=== PATIENT | male | born 1965 | race Caucasian/White ===

== ENCOUNTER 2019-01-09 22:50 | Emergency (ER) | payer OTHER ==
[~2019-01-09] VITALS: Ht 172.7 cm; Wt 69.0 kg
[~2019-01-09 22:50] MED LIST: CEPH-443 PO; HYDR-3498 PO; IBUP-1542 PO
[2019-01-09 22:58] VITALS: BP 127/62; PULSE 92; RESP 20; Ht 172.7 cm; Wt 69.0 kg
[2019-01-10] MEDS ORDERED: FLUORESCEIN STRIP RIGHT EYE ONE
[2019-01-10] MEDS ORDERED: TETRACAINE 0.5% 4 ML OPH RIGHT EYE ONE
[2019-01-10] MEDS ORDERED: NAPH30DR3 RIGHT EYE (00:21)
[2019-01-10] MEDS ORDERED: KETO5DRO21 RIGHT EYE (00:31)
--- NOTE | 2019-01-10 00:32 | ERD ---
ER Documentation Chief Complaint Chief Complaint PT was cutting tile and may have some in R eye HPI 53 year old male presents to ED complaining of possible FB into R eye. He states he was cutting tile yesterday and thinks a piece of tile went into his eye. He reports R eye pain 6/10 that is localized to the R eye. He reports tearing of the eye. He denies any previous injury to the eye. He denies loss of vision. He states the pain is constant and bothering him. Has not taken any medication for his sx Denies past med hx ROS All systems reviewed and are negative except as per history of present illness. Medications Home Meds Active Scripts Ketorolac Tromethamine Oph (Ketorolac Tromethamine Oph) 0.5%-5 Ml Opht Drops, 1 DROP RIGHT EYE QID for 7 Days, EA Prov:MALINDA DURÁN PA-C 01/10/19 Naphazoline Hcl* (Clear Eyes Redness Relief* 0.1%) 30 Ml Drops, 2 DROP RIGHT EYE Q4H PRN for EYE REDNESS for 7 Days, EA Prov:MALINDA DURÁN PA-C 01/10/19 Ibuprofen* (Motrin*) 600 Mg Tab, 600 MG PO Q6, #30 TAB Prov:ANITA LY NP 08/23/15 Hydrocodone Bit-Acetaminophen* ([place]*) 5-325 Mg Tab, 1 TAB PO Q6 PRN for PAIN, #20 TAB Prov:ANITA LY NP 08/23/15 Cephalexin* (Keflex*) 500 Mg Capsule, 500 MG PO QID for 5 Days, CAP Prov:ANITA LY NP 08/23/15 Allergies Allergies: Coded Allergies: No Known Allergy (Unverified , 01/09/19) PMhx/Soc History of Surgery: Yes (LEFT LEG SURGERY) Anesthesia Reaction: No Hx Neurological Disorder: No Hx Respiratory Disorders: No Hx Cardiac Disorders: No Hx Psychiatric Problems: No Hx Miscellaneous Medical Probl: Yes (DM,ITP.LEUKEMIA) Hx Alcohol Use: Yes (SOCIALLY) Hx Substance Use: No Hx Tobacco Use: Yes Smoking Status: Current every day smoker FmHx Family History: No diabetes Physical Exam Vitals Vital Signs Date Temp Pulse Resp B/P (MAP) Pulse Ox O2 O2 Flow FiO2 Time Delivery Rate 01/09/19 97.8 92 20 127/62 97 22:58 (83) Physical Exam Const: No acute distress Head: Atraumatic Eyes: Normal Conjunctiva, PERRLA Right eye: PERRLA, good visual acuity, not hard when pressed, tearing of the eye, no globe rupture ENT: Normal External Ears, Nose and Mouth. Neck: Full range of motion. No meningismus. Resp: Clear to auscultation bilaterally Cardio: Regular rate and rhythm, no murmurs Abd: Soft, non tender, non distended. Normal bowel sounds Skin: No petechiae or rashes Back: No midline or flank tenderness Ext: No cyanosis, or edema Neur: Awake and alert Psych: Normal Mood and Affect Results 24 hrs Current Medications Medications Dose Sig/Erin Start Time Status Last (Trade) Ordered Route PRN Stop Time Admin Dose Reason Admin Tetracaine 1 drop ONCE ONCE 01/10/19 DC HCl RIGHT EYE 00:00 (Tetracaine 01/10/19 00:01 0.5% Steri-Unit Sarah) Fluorescein 1 strip ONCE ONCE 01/10/19 DC Sodium RIGHT EYE 00:00 (Klfhk-V-Ljou 01/10/19 00:01 p) Procedures/MDM ED COURSE: The patient was stable throughout ED course. I kept the patient informed of laboratory and diagnostic imaging results throughout the ED course. PROCEDURES: Fluorescein stain MEDICATIONS GIVEN: Tetracaine Patient tolerated medication well with no adverse reactions. Patient reported improvement in pain. MEDICAL DECISION MAKING: Patient is a 53 year old male complaining of possible FB in right eye after cutting tile yesterday. On physical exam, pt had no loss of visual acuity. Pt was PERRLA and no obvious FB was seen on initial inspection. Pt was then given tetracaine to numb his eye and Fluorescein stain with Wood's lamp was performed with eye lid eversion. Under the lamp, no FB were currently in the eye. However, a location right of the globe showed indentation of where a possible FB struck him in the eye. I tried to get any bit of FB out but I think it was just an indentation. Pt was given clear eyes, Ketoralac, and motrin and told to follow up with his regular eye doctor tomm morning. Pt understand and agreed. All questions were answered. H&P and other data not c/w emergent process (eg. glaucoma, keratitis, globe perf, corneal ulcer). Vital signs were reviewed. Leatha anna is afebrile. Patient was not hypoxic. Patient was hemodynamically stable. Patient was told to follow up with primary care for further care and management. PRESCRIPTION: Ketoralac, clear eyes, motrin DISCHARGE: At this time, patient is stable for discharge and outpatient management. I have instructed the patient to follow-up with his/her primary care physician in 1-2 days. I have discussed with the patient the possibility of needing to see a specialist for further workup and imaging studies if symptoms persist. I have instructed the patient to promptly return to the ER for any new or worsening symptoms including increased pain, fever, nausea, vomiting, weakness or LOC. The patient expressed understanding of and agreement with this plan. All questions were answered. Home care instructions were provided. Disclaimer: Inadvertent spelling and grammatical errors are likely due to EHR/dictation software use and do not reflect on the overall quality of patient care. Also, please note that the electronic time recorded on this note does not necessarily reflect the actual time of the patient encounter. Departure Diagnosis: Primary Impression: Pain in eye Laterality: right Qualified Codes: H57.11 - Ocular pain, right eye Condition: Fair Patient Instructions: Eye Protection at Work: Types of Protective Eyewear, Eye Protection at Work: What Are Safety Glasses?, Eye Safety at Work Referrals: [facility] YOU HAVE RECEIVED A MEDICAL SCREENING EXAM AND THE RESULTS INDICATE THAT YOU DO NOT HAVE A CONDITION THAT REQUIRES URGENT TREATMENT IN THE EMERGENCY DEPARTMENT. FURTHER EVALUATION AND TREATMENT OF YOUR CONDITION CAN WAIT UNTIL YOU ARE SEEN IN YOUR DOCTORS OFFICE WITHIN THE NEXT 1-2 DAYS. IT IS YOUR RESPONSIBILITY TO MAKE AN APPOINTMENT FOR FOLOW-UP CARE. IF YOU HAVE A PRIMARY DOCTOR --you should call your primary doctor and schedule an appointment IF YOU DO NOT HAVE A PRIMARY DOCTOR YOU CAN CALL OUR PHYSICIAN REFERRAL HOTLINE AT IF YOU CAN NOT AFFORD TO SEE A PHYSICIAN YOU CAN CHOSE FROM THE FOLLOWING [facility] [address] [place] [facility] [address] [facility] [place] [address] [facility] [address] [facility] [address] [facility]. [facility] [address] [facility]. [facility] YOU HAVE RECEIVED A MEDICAL SCREENING EXAM AND THE RESULTS INDICATE THAT YOU DO NOT HAVE A CONDITION THAT REQUIRES URGENT TREATMENT IN THE EMERGENCY DEPARTMENT. FURTHER EVALUATION AND TREATMENT OF YOUR CONDITION CAN WAIT UNTIL YOU ARE SEEN IN YOUR DOCTORS OFFICE WITHIN THE NEXT 1-2 DAYS. IT IS YOUR RESPONSIBILITY TO MAKE AN APPOINTMENT FOR FOLOW-UP CARE. IF YOU HAVE A PRIMARY DOCTOR --you should call your primary doctor and schedule and appointment IF YOU DO NOT HAVE A PRIMARY DOCTOR YOU CAN CALL OUR PHYSICIAN REFERRAL HOTLINE AT . IF YOU CAN NOT AFFORD TO SEE A PHYSICIAN YOU CAN CHOSE FROM THE FOLLOWING [facility] INSTITUTIONS: [facility] [address] [place] [address] [facility] [address] [place] [address] [facility] [address] [place] [address] [facility] Hours: Mon - Fri 9:00 AM - 5:00 PM Additional Instructions: Follow-up with your eye doctor tomorrow Call your primary care doctor TOMORROW for an appointment during the next 1-2 days.See the doctor sooner or return here if your condition worsens before your appointment time. MALINDA DURÁN PA-C Jan 10, 2019 00:32
== END 2019-01-10 01:07 | disposition home or self-care (01) ==
LOC: FTE 22:50
DX: H57.11 Ocular pain, right eye (principal); E11.9 Type 2 diabetes mellitus without complications; F17.210 Nicotine dependence, cigarettes, uncomplicated
CPT/HCPCS: Z7502; Z7610; 99283

== ENCOUNTER 2019-01-26 04:59 | Emergency (ER) | payer OTHER ==
[~2019-01-26] VITALS: Ht 172.7 cm; Wt 67.6 kg
[~2019-01-26 04:59] MED LIST changes: +KETO5DRO21 RIGHT EYE; +NAPH30DR3 RIGHT EYE
[2019-01-26 05:02] VITALS: Ht 172.7 cm; Wt 67.6 kg
[2019-01-26] MEDS ORDERED: morphine 4 MG/ML VIAL IV STA (05:13)
[2019-01-26] MEDS ORDERED: SOD CHLORIDE 0.9% 1,000 ML IV STA (05:13)
[2019-01-26] MEDS ORDERED: ONDANSETRON 4 MG INJ IV STA (05:13)
--- NOTE | 2019-01-26 05:18 | ERD ---
ER Documentation Chief Complaint Chief Complaint headache since last night HPI 53-year-old gentleman who presents to the emergency room with headache and neck pain. Patient has a history of well-controlled hypertension. He states that yesterday he started to have a mild occipital headache. Today he notes worsening pain over the last 6 to 12 hours. The pain is to the trapezius muscle, bilateral paraspinal cervical neck and occipital head. Patient states that he has some discomfort and pain when moving the head from side to side. He denies any fevers or chills or rash. He denies that the headache was sudden and severe or thunderclap in nature. No other symptoms, no vision changes motor weakness numbness or tingling. Pain is moderate to severe at this time. ROS All systems reviewed and are negative except as per history of present illness. Medications Home Meds Active Scripts Ketorolac Tromethamine Oph (Ketorolac Tromethamine Oph) 0.5%-5 Ml Opht Drops, 1 DROP RIGHT EYE QID for 7 Days, EA Prov:MALINDA DURÁN PA-C 01/10/19 Naphazoline Hcl* (Clear Eyes Redness Relief* 0.1%) 30 Ml Drops, 2 DROP RIGHT EYE Q4H PRN for EYE REDNESS for 7 Days, EA Prov:MALINDA DURÁN PA-C 01/10/19 Ibuprofen* (Motrin*) 600 Mg Tab, 600 MG PO Q6, #30 TAB Prov:ANITA YL NP 08/23/15 Hydrocodone Bit-Acetaminophen* ([place]*) 5-325 Mg Tab, 1 TAB PO Q6 PRN for PAIN, #20 TAB Prov:ANITA LY NP 08/23/15 Cephalexin* (Keflex*) 500 Mg Capsule, 500 MG PO QID for 5 Days, CAP Prov:ANITA LY NP 08/23/15 Allergies Allergies: Coded Allergies: No Known Allergy (Unverified , 01/09/19) PMhx/Soc History of Surgery: Yes (LEFT LEG SURGERY) Anesthesia Reaction: No Hx Neurological Disorder: No Hx Respiratory Disorders: No Hx Cardiac Disorders: No Hx Psychiatric Problems: No Hx Miscellaneous Medical Probl: Yes (DM,ITP.LEUKEMIA) Hx Alcohol Use: Yes (SOCIALLY) Hx Substance Use: No Hx Tobacco Use: Yes FmHx Family History: No diabetes Physical Exam Vitals Vital Signs Date Temp Pulse Resp B/P (MAP) Pulse Ox O2 O2 Flow FiO2 Time Delivery Rate 01/26/19 97.2 87 18 163/77 98 05:02 (105) Physical Exam General: Appears to be uncomfortable Head: Normocephalic, atraumatic. Eyes: Pupils equally reactive, EOM intact ENT: Moist mucous membranes Neck: No midline tenderness deformities or step-offs, slight reproducible soft tissue tenderness to the paraspinal muscles of the neck and upper trapezius area. However, the patient seems to have torticollis and limited range of motion secondary to discomfort of the neck. Respiratory: Lungs clear bilaterally, no distress Cardiovascular: RRR, no murmurs, rubs, or gallops Abdominal: Soft, non-tender, non-distended, no peritoneal signs : Deferred MSK: No edema, no unilateral swelling, 5/5 strength Neurologic: Alert and oriented, moving all extremities, normal speech, no focal weakness, no cerebellar signs Skin: No rash Psych: Normal mood Result Diagram: 01/26/19518 Results 24 hrs Laboratory Tests Test 01/26/19 05:19 White Blood Count 17.2 10^3/ul Red Blood Count 4.46 10^6/ul Hemoglobin 13.3 g/dl Hematocrit 39.5 % Mean Corpuscular Volume 88.6 fl Mean Corpuscular Hemoglobin 29.8 pg Mean Corpuscular Hemoglobin Concent 33.7 g/dl Red Cell Distribution Width 15.9 % Platelet Count 150 10^3/UL Mean Platelet Volume fl Immature Granulocytes % 0.700 % Neutrophils % 67.4 % Lymphocytes % 21.5 % Monocytes % 9.0 % Eosinophils % 0.4 % Basophils % 1.0 % Nucleated Red Blood Cells % 0.1 /100WBC Immature Granulocytes # 0.120 10^3/ul Neutrophils # 11.6 10^3/ul Lymphocytes # 3.7 10^3/ul Monocytes # 1.6 10^3/ul Eosinophils # 0.1 10^3/ul Basophils # 0.2 10^3/ul Nucleated Red Blood Cells # 0.0 10^3/ul Current Medications Medications Dose Sig/Erin Start Time Status Last (Trade) Ordered Route PRN Stop Time Admin Dose Reason Admin Sodium 1,000 ml @ Q1H STAT 01/26/19 01/26/19 Chloride 1,000 mls/hr IV 05:13 05:23 01/26/19 06:12 Ondansetron 4 mg ONCE STAT 01/26/19 DC 01/26/19 HCl (Zofran IV 05:13 05:23 Inj) 01/26/19 05:15 Morphine 4 mg ONCE STAT 01/26/19 DC 01/26/19 Sulfate IV 05:13 05:24 (morphine) 01/26/19 05:15 Diazepam 5 mg ONCE ONCE 01/26/19 DC 01/26/19 (Valium) IV 05:30 05:24 01/26/19 05:31 Procedures/MDM EKG, MONITORS, & DIAGNOSTIC IMAGING: CT brain: PENDING CTA head and neck: PENDING LAB INTERPRETATION: I reviewed the laboratory testing and it shows WBC elevation but no shift. Likely stress response rather than infectious process MEDICAL DECISION MAKING: The patient presents with trapezius pain bilateral neck pain and occipital headache. However, the patient is having difficulty ranging his neck. This could be concerning for possible meningismus. Patient has no fever so meningitis seems extremely unlikely. Consider possible intracranial process such as subarachnoid hemorrhage but the patient does not describe sudden onset or thunderclap headache. Regardless, the patient is uncomfortable. In the end this is most likely secondary to muscular skeletal etiology, torticollis and muscle spasm. However, given the patient's discomfort and history of hypertension CT imaging of the head and CT of the head and neck are certainly necessary. I do not believe lumbar puncture is necessary at this time. Patient will benefit from symptom control medications including muscle relaxants. ER COURSE: * Patient was given IV fluids, pain medication, Valium for muscle relaxation * The patient has a white count of 17 but likely demargination secondary to pain. Patient has no left shift without evidence of infectious etiology. Again, this does not appear to be consistent with meningitis. * CT imaging is pending at the time of signout. Patient is endorsed to Dr. Pereyra for further evaluation and disposition pending diagnostic imaging. CONSULTATION: None DISPOSITION PLAN: Pending completion of work-up Departure Diagnosis: Primary Impression: Headache Headache type: unspecified Headache chronicity pattern: acute headache Intractability: not intractable Qualified Codes: R51 - Headache Additional Impression: Neck pain Condition: Stable YVONNE MILLER MD Jan 26, 2019 05:18
[2019-01-26] MEDS ORDERED: DIAZEPAM 5 MG/ML SYG IV ONE (05:30)
[2019-01-26] MEDS ORDERED: SOD CHLORIDE 0.9% 100 ML ONE (05:58)
[2019-01-26] MEDS ORDERED: IOHEXOL 100 ML ONE (05:58)
[2019-01-26] MEDS ORDERED: HYDROmorphONE 2 MG/ML SYG IV STA (07:08)
[2019-01-26] MEDS ORDERED: HYDR-3980 PO (08:27)
[2019-01-26] MEDS ORDERED: IBUP-1542 PO (08:27)
[2019-01-26] MEDS ORDERED: DIAZ5TAB PO (08:27)
[2019-01-26] MEDS ORDERED: NALO4SPR NS (08:27)
[2019-01-26 09:12] VITALS: BP 135/78; PULSE 89; RESP 17
== END 2019-01-26 09:12 | disposition home or self-care (01) ==
LOC: E/R 04:59
DX: M54.2 Cervicalgia (principal); I10 Essential (primary) hypertension; E11.9 Type 2 diabetes mellitus without complications; Z85.6 Personal history of leukemia; Z87.891 Personal history of nicotine dependence
CPT/HCPCS: 70450; 70496; 70498; 80048; 85025; 85610; 85730; J1170; J2270; J2405; J3360; J7030; Q9967; Z7610; 36415; 96374; 96375